=== PATIENT | female | born 1980 | race Two or more races ===

== ENCOUNTER 2024-12-19 17:34 | Emergency (ER) | payer OTHER ==
[~2024-12-19] VITALS: Ht 167.6 cm; Wt 68.0 kg
[2024-12-19] MEDS ORDERED: TDAP [DIPH/PERTUSSIS/TET] 0.5 ML VIAL IM ONE (18:31)
[2024-12-19 18:36] VITALS: BP 118/70; TEMP 98.7; O2SAT 98
[2024-12-19] MEDS: TDAP [DIPH/PERTUSSIS/TET] 0.5 ML VIAL IM ONE (18:40)
== END 2024-12-19 18:40 | disposition home or self-care (01) ==
LOC: ER 17:41
DX: S61.432A Puncture wound without foreign body of left hand, initial encounter (principal); Z98.890 Other specified postprocedural states; W55.01XA Bitten by cat, initial encounter; Y93.89 Activity, other specified; Y92.89 Other specified places as the place of occurrence of the external cause; Y99.8 Other external cause status
CPT/HCPCS: 90715